=== PATIENT | female | born 1980 | race Caucasian/White ===

== ENCOUNTER 2018-10-08 07:26 | Day surgery (SDC) | payer OTHER ==
[2018-10-07 14:44] VITALS: BMI 36.5
[~2018-10-08] VITALS: Ht 160 cm; Wt 94.2 kg
[2018-10-08] VITALS (13 sets, daily range): BP systolic 109–147; BP diastolic 63–88; PULSE 63–96; RESP 11–30; Ht 160 cm; Wt 94.2 kg
[~2018-10-08 07:26] MED LIST: ACETAMINOPHEN 500 MG TAB PO ONE; ANTI INFLAMMATORY; HYDR-762 PO; LIDOCAINE 2% (SDV) 5 ML INJ ONE
--- NOTE | 2018-10-08 08:20 | PREAC ---
Date/Time of Note Date/Time of Note DATE: 10/08/18 TIME: 08:15 Anesthesia Eval and Record Evaluation Time Pre-Procedure Interview DATE: 10/08/18 TIME: 08:15 Age 37 Sex female NPO: 8 hrs Preoperative diagnosis L CMC arthritis Planned procedure L carpometacarpophalangeal joint Past Medical History Past Medical History: Includes Pulm: Asthma (childhood hx) GI: Obesity Surgery & Anesthesia Issues No known issue Meds Anticoagulation: No Beta Tima within 24 hr: No Reason Beta Tima not given: Pt. not on B-Tima Discontinued Reported Medications [Anti Inflammatory] No Conflict Check 08/31/14 Hydrocodone Bit-Acetaminophen* ([place]*) 10-325 Mg Tablet, 1 TAB PO Q4H PRN for PAIN, TAB 08/31/14 Meds reviewed: Yes Allergies Coded Allergies: Penicillins (Verified Allergy, Severe, ALMOST , 10/08/18) Allergies Reviewed: Yes Labs/Studies Labs Reviewed: Reviewed by anesthesiologist test: Negative Studies: CXR (no active dz) Pre-procedure Exam Airway: Adequate mouth opening, Adequate thyromental dist Mallampati: Mallampati II Teeth: Normal Lung: Normal Heart: Normal ASA Physical Status ASA physical status: 3 Emergency: None Planned Anesthetic General/MAC: ETT, LMA Pre-operative Attestations Prior to commencing anesthesia and surgery, the patient was re-evaluated, there was verification of: *The patient's identity *The results of appropriate recent lab work and preoperative vital signs *The above evaluation not changing prior to induction *Anesthetic plan, risk benefits, alternative and complications discussed with patient/family; questions answered; patient/family understands, accepts and wishes to proceed. CHRISTIANO MERCADO October 08, 2018 08:20
[2018-10-08] MEDS ORDERED: morphine 2 MG INJ IV PRN ×2 (08:30)
[2018-10-08] MEDS ORDERED: HYDROmorphONE 1 MG/5 ML IV SYRINGE IV PRN ×3 (08:30)
[2018-10-08] MEDS ORDERED: ONDANSETRON 4 MG INJ IV PRN (08:30)
[2018-10-08] MEDS ORDERED: LACTATED RINGER'S 1,000 ML IV SCH (08:30)
[2018-10-08] MEDS ORDERED: ALBUTEROL 0.083% (NEB) 2.5 MG/3 ML AMP HHN PRN (08:30)
[2018-10-08] MEDS ORDERED: FENTAnyl 50 MCG/ML VIAL IV PRN (08:30)
[2018-10-08] MEDS ORDERED: LABETALOL HCL 20MG INJ IV PRN (08:30)
[2018-10-08] MEDS ORDERED: DIPHENHYDRAMINE 50 MG INJ IV PRN (08:30)
[2018-10-08] MEDS ORDERED: OXYCODONE/ACETAMINOPHEN (5/325) TAB PO PRN (08:30)
[2018-10-08] MEDS ORDERED: MEPERIDINE 25 MG INJ IV PRN (08:30)
[2018-10-08] MEDS ORDERED: FENTAnyl 50 MCG/ML VIAL ONE ×2 (08:37→10:06)
[2018-10-08] MEDS ORDERED: PROPOFOL 40 ML ONE (08:37)
[2018-10-08] MEDS ORDERED: ROCURONIUM 50 MG INJ ONE (08:37)
[2018-10-08] MEDS ORDERED: ONDANSETRON 4 MG INJ ONE (08:37)
[2018-10-08] MEDS ORDERED: MIDAZOLAM 1 MG/ML 2 ML INJ ONE (08:37)
[2018-10-08] MEDS ORDERED: FAMOTIDINE 20 MG INJ ONE (08:37)
[2018-10-08] MEDS ORDERED: DEXAMETHASONE 4 MG/ML 5 ML INJ ONE (08:41)
[2018-10-08] MEDS ORDERED: CLINDAMYCIN 900 MG/D5W (PMX) 50 ML IVPB SCH (09:00)
[2018-10-08] MEDS ORDERED: POLYMYXIN/BACITRACIN 1L IRRIG ONE (09:06)
[2018-10-08] MEDS ORDERED: GELATIN SIZE 100 SPONGE ONE (09:06)
[2018-10-08] MEDS ORDERED: BUPIVACAINE 0.25% (MPF) 30 ML INJ ONE (09:06)
[2018-10-08] MEDS ORDERED: THROMBIN (BOVINE) 5,000 UNIT VIAL TP ONE (09:06)
[2018-10-08] MEDS ORDERED: METOCLOPRAMIDE 10 MG INJ ONE (09:19)
--- NOTE | 2018-10-08 11:08 | PAC ---
Date/Time of Note Date/Time of Note DATE: 10/08/18 TIME: 11:07 Post-Anesthesia Notes Post-Anesthesia Note Last documented vital signs Vital Signs Date Temp Pulse Resp B/P Pulse Ox O2 O2 Flow FiO2 Time (MAP) Delivery Rate 10/08/18 98.2 97.9 63 87 16 16 118/78 97 98 6L face 08:46 110 (91) 120 mask Activity: WNL Respiratory function: WNL Cardiovascular function: WNL Mental status: Baseline Pain reasonably controlled: Yes Hydration appropriate: Yes Nausea/Vomiting absent: Yes CHRISTIANO MERCADO October 08, 2018 11:08
--- NOTE | 2018-10-08 11:19 | OPR ---
Date/Time of Note Date/Time of Note DATE: 10/08/18 TIME: 11:10 Operative Report Procedure Date: October 08, 2018 Preoperative Diagnosis Left thumb carpometacarpal joint arthritis Postoperative Diagnosis Left thumb carpometacarpal joint arthritis Operation/Procedure Performed Left thumb carpometacarpal arthroplasty with suture suspensionplasty Surgeon see signature line Day Care Home Mother None Anesthesia Type: general Tourniquet Time: 80 minutes Estimated Blood Loss: minimal Transfusion none Specimen None Grafts/Implants none Tubes/Drains None Complications none Pt Condition Post Procedure: stable Disposition: PACU Indications Mercedes is a 37-year-old female who has almost 1 year of left thumb pain. She has radiographic signs of osteoarthritis of the CMC joint. We have tried injections, bracing, hand therapy, anti-inflammatories, and activity modifications with no relief. On exam she has pain along the thenar eminence. She also has positive CMC grind with crepitus of the base of the thumb. We did also obtain an MRI which did not show any other pathology. We discussed doing surgery as a last resort. She understands risks surgery which include but are not limited to infection, pain, bleeding, neurovascular injury, stiffness, decreased strength, decreased range of motion, subsidence, more surgery, and other anesthesia risks. She elects to proceed. Procedure Description Patient was identified in preoperative holding area. Upper extremities marked patient brought back to operating room. She is placed supine and general trach anesthesia was induced. Clindamycin IV 60 mg administered. Nonsurgical spine arm. Arm was prepped and draped in usual sterile fashion. Timeout was performed indicating correct patient site and procedure Arm was exsanguinated with an Esmarch and tourniquet was elevated to 250 mm Hg. A slightly curvilinear S incision was made over the base of the thumb metacarpal at the interval between the glabrous and non-glabrous skin. Skin was incised sharply. Blunt dissection from dissection was performed down to the first dorsal extensor compartment. The radial sensory nerve branches were retracted. The first dorsal compartment was released by first releasing the EPB sub-sheath followed by the APL sheath. The base of the thumb was then exposed. An 18- gauge needle was utilized to localize the joint. The radial artery and vein was isolated and a vessel loop was passed around it. A longitudinal capsulotomy was established over the base of the metacarpal. Capsule was then elevated sharply off the trapezium. A [place] elevator and a sharp knife was utilized to release the capsule around the trapezium. Osteotome was utilized to osteotomize the bone in half. The trapezium was then removed with a rongeur in a piecemeal fashion. The FCR tendon was preserved. The ST joint was noted to be intact. There was articular wear of the base of the thumb metacarpal. The wound was irrigated. The APL tendon and the FCR tendon was then sutured in a suspension plasty type fashion using a #2 FiberWire. Traction was placed in a thumb while the suture was tied down. There is excellent suspension of the thumb metacarpal without subsidence. Gelfoam was placed in the voided. The capsule was then re paired using 3 oh Ativan suture. Final fluoroscopy shots were taken demonstrating excision of the trapezium and suspension of the thumb metacarpal. Tourniquet was released. Subcutaneous tissue was closed with 3-0 Monocryl suture and skin was closed with running subcuticular 3-0 Monocryl suture. Local injection 0.25% Marcaine was injected into the joint and subcutaneously. Steri- Strips were applied. She was then placed into a well-padded thumb spica splint. There is brisk capillary refill all fingers and all sponge and counts correct in case. She is extubated taken back stable condition. Plan: She will be immobilized for 4 weeks. She will start therapy at 6 weeks. BELLA JORDAN MD October 08, 2018 11:19
[2018-10-08] MEDS: FENTAnyl 50 MCG/ML VIAL IV PRN ×2 (11:31→11:40)
[2018-10-08] MEDS: OXYCODONE/ACETAMINOPHEN (5/325) TAB PO PRN ×2 (11:50→12:57)
== END 2018-10-08 13:25 | disposition home or self-care (01) ==
LOC: SDS 07:26
PROVIDERS: ATTEND Orthopaedic Surgery
DX: M13.842 Other specified arthritis, left hand (principal); J45.909 Unspecified asthma, uncomplicated
CPT/HCPCS: 25447; 73110; J1170; J2175; J2250; J2405; J2765; J3010; Z7512; Z7610; J1100